=== PATIENT | male | born 1940 | race Asian ===

== ENCOUNTER 2019-09-20 08:36 | Inpatient (IN) | payer BC, MEDICAID ==
[~2019-09-20] VITALS: Ht 167.6 cm; Wt 63.5 kg
[2019-09-20 08:40] VITALS: BP_SYST 165
--- NOTE | 2019-09-20 08:45 | NUR ---
Pt bib son with c/o chest pain 5/10 x2 days. Reports hx of stroke about a year ago. Hx of HTN also and reports blood pressure has been elevated for the last week and he has been compliant with meds. V/S stable, pt is afebrile. Currently resting in bed will continue to monitor.
--- NOTE | 2019-09-20 09:10 | NUR ---
ER Dr. Ordonez at bedside examining patient.
--- NOTE | 2019-09-20 09:46 | NUR ---
Lab at bedside to draw blood.
[2019-09-20 09:53] LABS: BASOPHILS % (AUTO) 0.6 % (0.0-2.0); EOSINOPHILS # (AUTO) 0.5 K/uL (0.0-0.4); EOSINOPHILS % (AUTO) 9.9 % (0.0-4.0); HEMATOCRIT 45.4 % (36-54); HEMOGLOBIN 15.3 g/dL (14.0-18.0); LYMPHOCYTES # (AUTO) 1.1 K/uL (1.0-5.5); LYMPHOCYTES % (AUTO) 21.3 % (20.5-51.5); MEAN CORPUSCULAR HEMOGLOBIN 32 pg (27-31); MEAN CORPUSCULAR HGB CONC 34 % (32-36); MEAN CORPUSCULAR VOLUME 96 fL (79.0-98.0); MONOCYTES # (AUTO) 0.6 K/uL (0.0-1.0); MONOCYTES % (AUTO) 11.5 % (1.7-9.3); NEUTROPHILS % (AUTO) 56.7 % (40.0-70.0); PLATELET COUNT (AUTO) 186 K/uL (130-430); RED BLOOD CELL COUNT(AUTO) 4.75 MIL/uL (4.2-6.2); RED CELL DISTRIBUTION WIDTH 13.7 % (9.0-15.0); WHITE BLOOD COUNT (AUTO) 5.2 K/uL (4.8-10.8)
[2019-09-20 10:05] LABS: ANION GAP 5 (5-15); CALCIUM 8.5 mg/dL (8.4-11.0); CHLORIDE 104 mmol/L (98-107); CREATININE 1.63 mg/dL (0.55-1.30); GLUCOSE 104 mg/dL (70-99); POTASSIUM 4.3 mmol/L (3.5-5.1); SODIUM SERUM 139 mmol/L (136-145); UREA NITROGEN, BLOOD 24 mg/dL (8-21)
--- NOTE | 2019-09-20 10:25 | NUR ---
EKG performed at BS by RN. Physician given copy of EKG for review.
[2019-09-20] MEDS ORDERED: ASPIRIN 325 MG TABLET PO ONE (10:30)
[2019-09-20] MEDS ORDERED: METOPROLOL TARTRATE 25 MG TABLET PO ONE ×2 (11:30→13:30)
[2019-09-20] MEDS ORDERED: ACETAMINOPHEN 325 MG TABLET PO PRN (13:15)
[2019-09-20] MEDS ORDERED: LORazepam 2 MG/ML VIAL IVP PRN (13:15)
[2019-09-20] MEDS ORDERED: cloNIDine HCL 0.1 MG TABLET PO PRN (13:15)
[2019-09-20] MEDS ORDERED: ZOLPIDEM TARTRATE 5 MG TABLET PO PRN (13:15)
[2019-09-20] MEDS ORDERED: MORPHINE 2 MG/ML INJ. SYRINGE IVP PRN (13:15)
[2019-09-20] MEDS ORDERED: NITROGLYCERIN 0.4 MG TAB.SUBL SL PRN (13:15)
--- NOTE | 2019-09-20 15:20 | NUR ---
CONSULT CALLED FOR DR MICHELLE REASON:CHEST PAIN SPOKE WITH MARKO
--- NOTE | 2019-09-20 15:44 | NUR ---
Patient resting quietly. No acute distress noted. Vital signs within normal range.
[2019-09-20] MEDS ORDERED: BUDE6HFA INH (16:47)
[2019-09-20] MEDS ORDERED: DOCU-144 PO (16:47)
[2019-09-20] MEDS ORDERED: SPIRIVA INH (16:47)
[2019-09-20] MEDS ORDERED: MOM PO (16:47)
[2019-09-20] MEDS ORDERED: FINA5TAB3 PO (16:47)
[2019-09-20] MEDS ORDERED: AMLO5TAB4 PO (16:47)
[2019-09-20] MEDS ORDERED: FLEC50TA2 PO (16:47)
[2019-09-20] MEDS ORDERED: LIP10 PO (16:47)
[2019-09-20] MEDS ORDERED: FAMO20TA8 PO (16:47)
[2019-09-20] MEDS ORDERED: TAMS-11 PO (16:47)
[2019-09-20] MEDS ORDERED: RIVA15TA PO (16:56)
--- NOTE | 2019-09-20 16:56 | NUR ---
Med rec and patient belongings list completed.
[2019-09-20] MEDS: NACL 0.9% 1,000 ML IV SCH (18:44)
--- NOTE | 2019-09-20 19:29 | NUR ---
Care of patient endorsed to JACKIE [place]. Pt currently resting in bed, V/S stable
--- NOTE | 2019-09-20 20:03 | NUR ---
PT RESTING COMFORTABLY IN BED. NO SIGNS OF ACUTE DISTRESS. VSS.
[2019-09-20] MEDS: FLECAINIDE ACETATE 50 MG TABLET (TAMBOCOR) PO SCH (21:00)
[2019-09-20] MEDS ORDERED: METOPROLOL TARTRATE 25 MG TABLET PO SCH (21:00)
[2019-09-20] MEDS: ALBUTEROL SULFATE 0.083% 2.5 MG/3 ML VIAL.NEB INH SCH (21:21)
[2019-09-20] MEDS: BUDESONIDE 0.5 MG/2 ML AMPUL.NEB INH SCH (21:22)
[2019-09-20] MEDS: IPRATROPIUM BROM 0.5 MG/2.5 ML VIAL.NEB (ATROVENT) INH SCH (21:23)
--- NOTE | 2019-09-20 21:31 | NUR ---
MEDICATION UNAVAILABLE IN [facility]NTIRE HOSPITAL, [facility] 50MG. CALLED DR. CASTRO AND NOTIFIED HIM. NO CHANGE IN ORDERS.
--- NOTE | 2019-09-20 22:02 | NUR ---
pt sleeping in bed. no signs of acute distress. VSS.
--- NOTE | 2019-09-20 23:25 | NUR ---
PT USED BEDSIDE URINAL TO URINATE. PT VITAL SIGNS STABLE.
--- NOTE | 2019-09-21 00:02 | NUR ---
PT SLEEPING COMFORTABLY IN BED. VITAL SIGNS STABLE. BREATHING EVEN AND LABORED.
--- NOTE | 2019-09-21 01:02 | NUR ---
PT AWAKE, VITAL SIGNS STABLE, DRINKING A CUP OF WATER.
[2019-09-21 01:13] LABS: BILIRUBIN,URINE NEGATIVE (NEGATIVE); BLOOD, URINE NEGATIVE (NEGATIVE); CLARITY/URINE CLEAR (CLEAR); COLOR,URINE YELLOW (YELLOW); GLUCOSE,URINE NEGATIVE (NEGATIVE); KETONES,URINE NEGATIVE (NEGATIVE); LEUKOCYTE ESTERASE ,URINE NEGATIVE (NEGATIVE); NITRITE, URINE NEGATIVE (NEGATIVE); PROTEIN URINE NEGATIVE (NEGATIVE); UROBILINOGEN,URINE 0.2 (0.2-1.0)
--- NOTE | 2019-09-21 02:02 | NUR ---
PT NS FLUIDS STILL RUNNING. ORDER FOR 1L NS @ 80ML/HR WILL BE ADMINISTERED AFTER.
[2019-09-21] MEDS: ALBUTEROL SULFATE 0.083% 2.5 MG/3 ML VIAL.NEB INH SCH ×2 (02:23→07:50)
--- NOTE | 2019-09-21 03:02 | NUR ---
VITAL SIGNS STABLE. PT SLEEPING IN BED. EVEN AND UNLABORED AND BREATHING.
--- NOTE | 2019-09-21 03:02 | NUR ---
Note undone in EDM - 09/21/19 at 0600 by KENTRELL VITAL SIGNS STABLE. PT SLEEPING IN BED. EVEN AND LABORED AND BREATHING.
[2019-09-21] MEDS: NACL 0.9% 1,000 ML IV SCH (03:06)
--- NOTE | 2019-09-21 04:02 | NUR ---
PT SLEEPING COMFORTABLY, EVEN AND UNLABORED BREATHING. VITAL SIGNS STABLE.
[2019-09-21 04:36] LABS: BASOPHILS % (AUTO) 0.6 % (0.0-2.0); EOSINOPHILS # (AUTO) 0.5 K/uL (0.0-0.4); EOSINOPHILS % (AUTO) 8.2 % (0.0-4.0); HEMATOCRIT 43.3 % (36-54); HEMOGLOBIN 14.5 g/dL (14.0-18.0); LYMPHOCYTES # (AUTO) 0.9 K/uL (1.0-5.5); LYMPHOCYTES % (AUTO) 14.8 % (20.5-51.5); MEAN CORPUSCULAR HEMOGLOBIN 32 pg (27-31); MEAN CORPUSCULAR HGB CONC 34 % (32-36); MEAN CORPUSCULAR VOLUME 95 fL (79.0-98.0); MONOCYTES # (AUTO) 0.7 K/uL (0.0-1.0); MONOCYTES % (AUTO) 11.6 % (1.7-9.3); NEUTROPHILS # (AUTO) 3.9 K/uL (1.8-7.7); NEUTROPHILS % (AUTO) 64.8 % (40.0-70.0); PLATELET COUNT (AUTO) 173 K/uL (130-430); RED BLOOD CELL COUNT(AUTO) 4.55 MIL/uL (4.2-6.2); RED CELL DISTRIBUTION WIDTH 13.8 % (9.0-15.0); WHITE BLOOD COUNT (AUTO) 6.1 K/uL (4.8-10.8)
--- NOTE | 2019-09-21 05:02 | NUR ---
PT LAYING IN BED WITHOUT ANY COMPLAINTS. VITAL SIGNS STABLE.
[2019-09-21 05:04] LABS: ALANINE AMINOTRANSFERASE 23 U/L (12-78); ALBUMIN 3.1 g/dL (3.4-4.8); ANION GAP 6 (5-15); ASPARTATE AMINOTRANSFERASE 14 U/L (10-37); CALCIUM 8.5 mg/dL (8.4-11.0); CHLORIDE 103 mmol/L (98-107); CHOLESTEROL 136 mg/dL (<200); CREATININE 1.52 mg/dL (0.55-1.30); GLUCOSE 108 mg/dL (70-99); HDL CHOLESTEROL 52 mg/dL (>45); LDL CHOLESTEROL 62 mg/dL (<100); POTASSIUM 3.8 mmol/L (3.5-5.1); SODIUM SERUM 134 mmol/L (136-145); THYROID STIMULATING HORMONE 1.28 uIu/mL (0.34-4.82); TOTAL BILIRUBIN 0.5 mg/dL (0.0-1.0); TRIGLYCERIDES 115 mg/dL (30-150); UREA NITROGEN, BLOOD 26 mg/dL (8-21)
--- NOTE | 2019-09-21 06:02 | NUR ---
PT VITAL SIGNS STABLE. SLEEPING IN BED.
--- NOTE | 2019-09-21 06:20 | NUR ---
Patient will be admitted to care of [facility]. Admitted to TELE unit. Will go to room PENDING. Belongings list completed. Complete and up to date summary report printed. SBAR report to be given at bedside with opportunity for questions.
--- NOTE | 2019-09-21 07:12 | NUR ---
REPORT GIVEN TO JACKIE FREY FOR CONTINUATION OF CARE.
--- NOTE | 2019-09-21 07:24 | NUR ---
Patient report received from JACKIE [place]. Patient is admitted under the care of Dr. Castorena for Type II [place]. Patient states no chest pain, shortness of breath, or discomfort. Patient placed in position of comfort, and urinal is emptied 700mL of clear yellow urine. Patients belongings are within reach. Patients tray is cleared and patient is aware that we are waiting for bed assignment. Patient calm and cooperative. Patient remains on surveillance system monitor. Will continue to follow up and monitor.
[2019-09-21] MEDS: IPRATROPIUM BROM 0.5 MG/2.5 ML VIAL.NEB (ATROVENT) INH SCH (07:50)
[2019-09-21] MEDS: BUDESONIDE 0.5 MG/2 ML AMPUL.NEB INH SCH (08:00)
--- NOTE | 2019-09-21 08:23 | NUR ---
Called pharmacy for morning medication doses. Patient given food tray and water pitcher, placed in position of comfort. Patient remains on school lunch monitor. Will continue to follow up and monitor.
[2019-09-21] MEDS ORDERED: amLODIPine BESYLATE 5 MG TABLET PO SCH (09:00)
[2019-09-21] MEDS ORDERED: ATORVASTATIN 20 MG TABLET PO SCH (09:00)
[2019-09-21] MEDS ORDERED: RIVAROXABAN 15 MG TABLET PO SCH (09:00)
[2019-09-21] MEDS ORDERED: ENOXAPARIN SODIUM 40 MG/0.4 ML SYRINGE SUBCUT SCH (09:00)
[2019-09-21] MEDS ORDERED: TAMSULOSIN HCL 0.4 MG CAP PO SCH (09:00)
[2019-09-21] MEDS ORDERED: ATORVASTATIN 10 MG TABLET PO SCH (09:00)
[2019-09-21] MEDS ORDERED: ASPIRIN 81 MG TAB.CHEW PO SCH (09:00)
[2019-09-21] MEDS ORDERED: CLOPIDOGREL BISULFATE 75 MG TABLET PO SCH (09:00)
[2019-09-21] MEDS ORDERED: BUDESONIDE/FORMOTEROL 160-4.5 mCg, 6 GM INHALER INH SCH (09:00)
[2019-09-21] MEDS ORDERED: FAMOTIDINE 20 MG TABLET PO SCH (09:00)
[2019-09-21] MEDS ORDERED: FINASTERIDE 5 MG TABLET (PROSCAR) PO SCH (09:00)
[2019-09-21] MEDS: FLECAINIDE ACETATE 50 MG TABLET (TAMBOCOR) PO SCH (09:06)
--- NOTE | 2019-09-21 09:23 | NUR ---
Dr. Hidalgo at bedside for evaluation
--- NOTE | 2019-09-21 10:07 | NUR ---
Patient resting comfortably, needs are met at this time. Will continue to follow up regarding discharge of patient.
--- NOTE | 2019-09-21 11:17 | NUR ---
Patient will be DC from ER but the nurse has no access to print out DC instruction. Print DC instruction for the patient from [facility]ST station.
--- NOTE | 2019-09-21 11:37 | NUR ---
Patient given written and verbal discharge instructions and verbalizes understanding. MD Fu discussed with patient the results and treatment provided. Patient in stable condition. ID arm band removed. IV catheter removed intact and dressing applied, no active bleeding. Rx not given. Patient educated on pain management and to follow up with PMD. Pain Scale 0/10. Opportunity for questions provided and answered. Medication side effect fact sheet provided. Admission paperwork printed by Tommy RN for discharge from admission. Went over discharge paperwork with patient.
[2019-09-21 11:40] VITALS: BP_SYST 132
[2019-09-23] MEDS ORDERED: TIOTROPIUM BROMIDE 18 mcg/INHALATION (CAPSULE) INH SCH (09:00)
== END 2019-09-21 10:57 | disposition home or self-care (01) | DRG 280 ==
LOC: SED 08:36 → STU 12:40
PROVIDERS: ADMIT General Practice; ATTEND General Practice
DX: I21.A1 Myocardial infarction type 2 (principal); N17.0 Acute kidney failure with tubular necrosis; N40.0 Benign prostatic hyperplasia without lower urinary tract symptoms; I48.0 Paroxysmal atrial fibrillation; J44.9 Chronic obstructive pulmonary disease, unspecified; I12.9 Hypertensive chronic kidney disease with stage 1 through stage 4 chronic kidney disease, or unspecified chronic kidney disease; N18.9 Chronic kidney disease, unspecified; Z79.01 Long term (current) use of anticoagulants; Z86.73 Personal history of transient ischemic attack (TIA), and cerebral infarction without residual deficits; I25.2 Old myocardial infarction
CPT/HCPCS: 36415; 70450-TC; 71045; 76770; 80048; 80053; 80061; 81003; 83735-TC; 83880; 84443-TC; 84484; 85025; 93005; 93306; 94640; G0378; J7613; J7626